=== PATIENT | female | born 2000 | race Caucasian/White ===

== ENCOUNTER 2024-04-23 04:57 | Emergency (ER) | payer SELFPAY ==
[~2024-04-23] VITALS: Ht 170.2 cm; Wt 74.8 kg
[2024-04-23 07:21] VITALS: BP 142/89; TEMP 98.2; O2SAT 98
== END 2024-04-23 07:22 | disposition home or self-care (01) ==
LOC: ER 05:00
DX: S00.83XA Contusion of other part of head, initial encounter (principal); V43.52XA Car driver injured in collision with other type car in traffic accident, initial encounter; Y93.89 Activity, other specified; Y92.488 Other paved roadways as the place of occurrence of the external cause; Y99.8 Other external cause status
CPT/HCPCS: 70450-TC